=== PATIENT | male | born 1960 | race Native Hawaiian/Other Pacific Islander ===

== ENCOUNTER 2025-06-26 14:43 | Outpatient (CLI) | payer OTHER | END 2025-06-26 14:44 | disposition home or self-care (01) | LOC: CSHMAMMO 14:43 | PROVIDERS: ATTEND Family Medicine | DX: N62 Hypertrophy of breast (principal); N63.0 Unspecified lump in unspecified breast | CPT/HCPCS: 77066; G0279 ==